=== PATIENT | female | born 1975 | race Caucasian/White ===

== ENCOUNTER 2021-01-25 12:54 | Emergency (ER) | payer MEDICARE, MEDICAID, SELFPAY ==
--- NOTE | ~2021-01-25 | XR_ITS ---
EXAMINATION: XR CHEST CLINICAL INFORMATION: First-time seizure. Age 45. COMPARISON: None TECHNIQUE: Portable upright AP view of the chest was obtained. FINDINGS: There are low lung volumes with inspiration to the posterior 8th ribs. The lungs are clear. There is no airspace consolidation, airspace opacity, or effusion. The heart is normal in size and the hilar and mediastinal contours are unremarkable. Bony structures show prominent dextrocurvature thoracic spine with multilevel degenerative changes. There is hardware/rodding in the lower thoracic and upper lumbar spine extending beyond field of view. XR/XR chest 1V IMPRESSION: Unremarkable examination.
--- NOTE | ~2021-01-25 | CT_ITS ---
EXAMINATION: CT HEAD WITHOUT CONTRAST CLINICAL INFORMATION: Procedure COMPARISON: None TECHNIQUE: Contiguous axial imaging was performed from the skull base to vertex without intravenous administration of contrast. This CT examination was performed using dose optimization techniques as appropriate, variously including the following: *Automated exposure control *Adjustment of mA and/or kV according to patient size (this includes techniques or standardized protocols for targeted exams where dose is matched to indication/reason for exam; i.e. extremities or head) *Use of iterative reconstruction technique DLP: 1693 mGy-cm FINDINGS: Exam is limited due to motion artifact. There is no evidence of an extra-axial collection. There is no evidence of intra-axial or extra-axial hemorrhage. The ventricles and extra-axial CSF spaces are appropriate. Oconnell-white matter differentiation is normal. No mass, mass effect or infarct is seen. Review at bone windows is normal. No skull fracture is seen. Paranasal sinuses, mastoid air cells and middle ears are clear. There is deformity and calcification of the eyeballs. CT/CT head/brain wo con IMPRESSION: Limited exam due to motion artifact. No acute findings.
[2021-01-25 13:13] VITALS: BP 143/83; PULSE 94; RESP 28; TEMP 36.8; O2SAT 98; BMI 28.3
--- NOTE | 2021-01-25 13:36 | ECG_ITS ---
Test Reason : SEIZURE Blood Pressure : / mmHG Vent. Rate : 082 BPM Atrial Rate : 082 BPM P-R Int : 168 ms QRS Dur : 088 ms QT Int : 390 ms P-R-T Axes : 009 142 027 degrees QTc Int : 455 ms Poor data quality Normal sinus rhythm Right axis deviation Incomplete right bundle branch block Abnormal ECG No previous ECGs available Referred By: Patricia Barillas Electronically Signed By:ADALI KELLY MD
--- NOTE | 2021-01-25 13:40 | ED.SEIZURE ---
HPI - Seizure General Chief Complaint: Seizure Stated Complaint: SIEZURE Time Seen by Provider: 01/25/21 13:26 Source: patient and EMS Mode of arrival: EMS History of Present Illness HPI Narrative: 45-year-old female a with a PMHx HTN, legally blind, legally deaf, nonverbal, developmental delay, BIBA for first-time witnessed seizure at Day program [employer]. Per mother patient had described as tonic clonic seizure while sitting in wheelchair, denies fall/head trauma. Parents denies fever, recent illness/chills, cough, SOB, vomiting/diarrhea History limited as patient is nonverbal MD complaint: seizure Related Data Home Medications Medication Instructions Recorded Confirmed cholecalciferol (vitamin D3) 50 mcg PO DAILY 01/25/21 01/25/21 cyclosporine [Restasis] 1 drp OPHTHALMIC (EYE) BID 01/25/21 01/25/21 docusate sodium 1 cap PO BID 01/25/21 01/25/21 fluoxetine 1 cap PO DAILY 01/25/21 01/25/21 loratadine 1 tab PO DAILY 01/25/21 01/25/21 norgestimate-ethinyl estradiol 1 tab PO DAILY 01/25/21 01/25/21 [Estarylla] sennosides [senna] 17.2 mg PO BEDTIME 01/25/21 01/25/21 zolpidem 1 tab PO BEDTIME 01/25/21 01/25/21 Previous Rx's Medication Instructions Recorded cefuroxime axetil 250 mg PO BID 7 Days #14 tab 01/25/21 levetiracetam 500 mg PO BID 14 Days #28 tab 01/25/21 Allergies Allergy/AdvReac Type Severity Reaction Status Date / Time Sulfa (Sulfonamide Allergy Unknown Verified 08/29/12 00:00 Antibiotics) No Known Allergies Allergy Unverified 03/24/20 14:53 [No Known Allergies*] Review of Systems Review of Systems: Constitutional: No Fever, No Chills Eyes: No Eye Pain, No Swelling, + Redness Cardiovascular: No Chest Pain, No SOB Respiratory: No Cough, No Dyspnea Gastrointestinal: No Nausea, No Vomiting, No Diarrhea, No Constipation, No Abdominal pain Genitourinary: No Dysuria, No Urinary Frequency, No Hematuria Musculoskeletal: No Joint Swelling Skin: No Skin Lesions, No rash Neuro: No Weakness Yes all other systems are reviewed and are negative [facility] Past Medical History Attestation statement: The following information was validated with the patient. Medical History (Updated 01/25/21 @ 19:33 by ADRIÁN August) Hypertension Social History Social History Advance Directives: No Advance Directives Information Provided: Yes Physical Exam Vital Signs: Vital Signs: Last Vital Signs Temp 97.2 F 01/25/21 15:32 Pulse 71 01/25/21 15:32 Resp 16 01/25/21 15:32 BP 125/71 01/25/21 15:32 Pulse Ox 99 01/25/21 15:32 Body Mass Index 28.3 Const: Other: Upset/tearful General: cooperative, alert and awake HENMT: Head: Yes normal to inspection and Yes atraumatic Ears: hearing grossly normal bilaterally General nose exam: Normal external nose present Face and sinus: Yes normal facial exam Eyes: Other: Bilateral conjunctival irritation General: appearance normal, both eyes and all related structures EOM: EOMs intact bilaterally Neck: Neck: Yes normal visual inspection and Yes no meningeal signs Resp: Effort & Inspection: normal respiratory effort Auscultation: clear to auscultation bilaterally and no wheezes Cardio: Rate: regular rate Heart sounds: S1 normal heart sound present and S2 normal heart sound present GI: Inspection: Yes normal to inspection Palpation (GI): Soft to palpation, nontender, no guarding and not rigid Skin: Rashes: no rashes Wounds: no wounds Neuro: General: tone normal, moves all extremities and no meningeal signs Gait exam (Neuro): Normal gait present Extrem: General: Yes normal to inspection and Yes no pedal edema Course Course Course Narrative: -1415--neurology, Dr. Clark evaluated patient in the emergency department recommended labs to rule out infection/metabolic abnormalities, initiating Keflex 500 b.i.d. and DC home with outpatient follow-up XR chest 1V IMPRESSION: Unremarkable examination. CT head/brain wo con IMPRESSION: Limited exam due to motion artifact. No acute findings. -leukocytosis of 16.6 likely reactive from seizure. Lactic acidosis of 3.0 which also coincides with seizure. Low concern for severe sepsis -High sensitivity troponin 30.3 > will obtain 3 hour repeat -1600--UA is infected will give dose of IV Rocephin. Still low suspicion for severe sepsis -lactic cleared -repeat troponin with greater than 50% rise. Case discussed with Cardiology, likely from muscle breakdown however CPK WNL. Low suspicion for ACS, agreed plan to repeat additional 3 hour troponin -1900-- ED care transferred to ADRIÁN Cesar pending repeat troponin and CBC at 8:20 p.m. MDM - Seizure MDM Narrative Medical decision making narrative: 45-year-old female a with a PMHx HTN, legally blind, legally deaf, nonverbal, developmental delay, BIBA for first-time witnessed seizure at Day program [employer]. On exam tachypneic, upset/tearful, NAD/nontoxic. Concern for intracranial pathology vs metabolic or infectious etiology causing first-time seizure. Vital sign abnormalities likely from being upset. Low concern for severe sepsis Plan: EKG, labs, UA, CXR, head CT, anticipated admission/Neuro consult Medical Records Attestation: I reviewed the patient's medical records. Lab Data Attestation: I reviewed the patient's lab results. Result diagrams: 01/25/21 14:54 01/25/21 14:54 Labs: Lab Results 01/25/21 01/25/21 01/25/21 Range/Units 14:53 14:53 14:54 WBC 16.6 H (4.8-10.8) X10*3/uL RBC 4.33 (4.20-5.50) X10*6/uL Hgb 13.1 (12.0-16.0) g/dl Hct 37.8 (37-47) % MCV 87.3 (80-98) fL MCH 30.3 (27.0-33.0) pg MCHC 34.7 (31.0-35.0) g/dl RDW 11.9 (11.0-16.0) % Plt Count 316 (160-400) X10*3/uL MPV 9.0 L (9.4-12.3) fL Immature Gran % (Auto) 0.6 H (0.0-0.4) % Neut % (Auto) 87.7 H (45-73) % Lymph % (Auto) 7.4 L (20-40) % [place] % (Auto) 3.9 (2-11) % Eos % (Auto) 0.1 (0-4) % Baso % (Auto) 0.3 (0-2) % Lymph # (Auto) 1.2 (1.2-4.9) X10*3/uL [place] # (Auto) 0.7 (0.1-1.2) X10*3/uL Eos # (Auto) 0.0 (0.0-0.4) X10*3/uL Baso # (Auto) 0.1 (0.0-0.2) X10*3/uL Abs Immat Gran (auto) 0.10 H (0.00-0.03) X10*3/uL Absolute Neuts (auto) 14.6 H (2.0-8.3) X10*3/uL Absolute Nucleated RBC 0.000 (0.0-0.012) X10*3/uL Nucleated RBC % (auto) 0.0 (0.0-0.2) /100WBC Sodium (135-145) mmol/L Potassium (3.3-5.1) mmol/L Chloride (96-108) mmol/L Carbon Dioxide (22-29) mmol/L Anion Gap (12-20) BUN (9-16) mg/dL Creatinine (0.5-1.4) mg/dL Estim Creat Clear Calc Estimated GFR Random Glucose (60-115) mg/dL Lactic Acid 3.0 H* (0.5-2.0) mmol/L Lactic Acid Fup @ 2Hr (0.5-2.0) mmol/L Calcium (8.4-10.2) mg/dL Magnesium (1.6-2.6) mg/dL Total Bilirubin (0.0-1.0) mg/dL Direct Bilirubin (0.0-0.5) mg/dL AST (5-31) U/L ALT (0-31) U/L Alkaline Phosphatase (39-117) U/L Total Creatine Kinase (26-140) U/L Troponin I High Sens 30.3 H* (<3.5-17.0) ng/L Total Protein (6.5-8.0) g/dL Albumin (3.5-5.0) g/dL Lipase (8-78) U/L Urine Color Urine Appearance Urine pH (5.0-8.0) Ur Specific [place] (1.005-1.025) Urine Protein (NEG-TRACE) MG/DL Urine Glucose (UA) (NEG) MG/DL Urine Ketones (NEG) MG/DL Urine Blood (NEG) Urine Nitrite (NEG) Ur Leukocyte Esterase (NEG) Urine RBC (0) /HPF Urine WBC (0-4) /HPF Ur Squamous Epith Cells /LPF Urine Bacteria /LPF Urine Opiates Screen (Not Detect) Ur Barbiturates Screen (Not Detect) Ur Phencyclidine Scrn (Not Detect) Ur Amphetamines Screen (Not Detect) U Benzodiazepines Scrn (Not Detect) Urine Cocaine Screen (Not Detect) U Marijuana (THC) Screen (Not Detect) COVID-19 ([facility]) (Negative) COVID-19 Clin Com 01/25/21 01/25/21 01/25/21 Range/Units 14:54 14:54 14:54 WBC (4.8-10.8) X10*3/uL RBC (4.20-5.50) X10*6/uL Hgb (12.0-16.0) g/dl Hct (37-47) % MCV (80-98) fL MCH (27.0-33.0) pg MCHC (31.0-35.0) g/dl RDW (11.0-16.0) % Plt Count (160-400) X10*3/uL MPV (9.4-12.3) fL Immature Gran % (Auto) (0.0-0.4) % Neut % (Auto) (45-73) % Lymph % (Auto) (20-40) % [place] % (Auto) (2-11) % Eos % (Auto) (0-4) % Baso % (Auto) (0-2) % Lymph # (Auto) (1.2-4.9) X10*3/uL [place] # (Auto) (0.1-1.2) X10*3/uL Eos # (Auto) (0.0-0.4) X10*3/uL Baso # (Auto) (0.0-0.2) X10*3/uL Abs Immat Gran (auto) (0.00-0.03) X10*3/uL Absolute Neuts (auto) (2.0-8.3) X10*3/uL Absolute Nucleated RBC (0.0-0.012) X10*3/uL Nucleated RBC % (auto) (0.0-0.2) /100WBC Sodium 138 (135-145) mmol/L Potassium 4.7 (3.3-5.1) mmol/L Chloride 107 (96-108) mmol/L Carbon Dioxide 22 (22-29) mmol/L Anion Gap 14 (12-20) BUN 10 (9-16) mg/dL Creatinine 0.75 (0.5-1.4) mg/dL Estim Creat Clear Calc 92.8 Estimated GFR > 60 Random Glucose 118 H (60-115) mg/dL Lactic Acid (0.5-2.0) mmol/L Lactic Acid Fup @ 2Hr (0.5-2.0) mmol/L Calcium 9.2 (8.4-10.2) mg/dL Magnesium 1.9 (1.6-2.6) mg/dL Total Bilirubin 0.3 (0.0-1.0) mg/dL Direct Bilirubin < 0.2 (0.0-0.5) mg/dL AST 14 (5-31) U/L ALT 10 (0-31) U/L Alkaline Phosphatase 75 (39-117) U/L Total Creatine Kinase 64 (26-140) U/L Troponin I High Sens (<3.5-17.0) ng/L Total Protein 7.1 (6.5-8.0) g/dL Albumin 3.9 (3.5-5.0) g/dL Lipase 22 (8-78) U/L Urine Color Urine Appearance Urine pH (5.0-8.0) Ur Specific [place] (1.005-1.025) Urine Protein (NEG-TRACE) MG/DL Urine Glucose (UA) (NEG) MG/DL Urine Ketones (NEG) MG/DL Urine Blood (NEG) Urine Nitrite (NEG) Ur Leukocyte Esterase (NEG) Urine RBC (0) /HPF Urine WBC (0-4) /HPF Ur Squamous Epith Cells /LPF Urine Bacteria /LPF Urine Opiates Screen (Not Detect) Ur Barbiturates Screen (Not Detect) Ur Phencyclidine Scrn (Not Detect) Ur Amphetamines Screen (Not Detect) U Benzodiazepines Scrn (Not Detect) Urine Cocaine Screen (Not Detect) U Marijuana (THC) Screen (Not Detect) COVID-19 ([facility]) Negative (Negative) COVID-19 Clin Com See Note 01/25/21 01/25/21 01/25/21 Range/Units 15:35 15:35 17:19 WBC (4.8-10.8) X10*3/uL RBC (4.20-5.50) X10*6/uL Hgb (12.0-16.0) g/dl Hct (37-47) % MCV (80-98) fL MCH (27.0-33.0) pg MCHC (31.0-35.0) g/dl RDW (11.0-16.0) % Plt Count (160-400) X10*3/uL MPV (9.4-12.3) fL Immature Gran % (Auto) (0.0-0.4) % Neut % (Auto) (45-73) % Lymph % (Auto) (20-40) % [place] % (Auto) (2-11) % Eos % (Auto) (0-4) % Baso % (Auto) (0-2) % Lymph # (Auto) (1.2-4.9) X10*3/uL [place] # (Auto) (0.1-1.2) X10*3/uL Eos # (Auto) (0.0-0.4) X10*3/uL Baso # (Auto) (0.0-0.2) X10*3/uL Abs Immat Gran (auto) (0.00-0.03) X10*3/uL Absolute Neuts (auto) (2.0-8.3) X10*3/uL Absolute Nucleated RBC (0.0-0.012) X10*3/uL Nucleated RBC % (auto) (0.0-0.2) /100WBC Sodium (135-145) mmol/L Potassium (3.3-5.1) mmol/L Chloride (96-108) mmol/L Carbon Dioxide (22-29) mmol/L Anion Gap (12-20) BUN (9-16) mg/dL Creatinine (0.5-1.4) mg/dL Estim Creat Clear Calc Estimated GFR Random Glucose (60-115) mg/dL Lactic Acid (0.5-2.0) mmol/L Lactic Acid Fup @ 2Hr (0.5-2.0) mmol/L Calcium (8.4-10.2) mg/dL Magnesium (1.6-2.6) mg/dL Total Bilirubin (0.0-1.0) mg/dL Direct Bilirubin (0.0-0.5) mg/dL AST (5-31) U/L ALT (0-31) U/L Alkaline Phosphatase (39-117) U/L Total Creatine Kinase (26-140) U/L Troponin I High Sens 57.4 H* D (<3.5-17.0) ng/L Total Protein (6.5-8.0) g/dL Albumin (3.5-5.0) g/dL Lipase (8-78) U/L Urine Color YELLOW Urine Appearance HAZY Urine pH 7.0 (5.0-8.0) Ur Specific [place] 1.020 (1.005-1.025) Urine Protein NEG (NEG-TRACE) MG/DL Urine Glucose (UA) NEG (NEG) MG/DL Urine Ketones 15 (NEG) MG/DL Urine Blood 2+ H (NEG) Urine Nitrite NEG (NEG) Ur Leukocyte Esterase 2+ H (NEG) Urine RBC 10-14 H (0) /HPF Urine WBC 10-14 H (0-4) /HPF Ur Squamous Epith Cells 1+ /LPF Urine Bacteria 1+ /LPF Urine Opiates Screen Not Detected (Not Detect) Ur Barbiturates Screen Not Detected (Not Detect) Ur Phencyclidine Scrn Not Detected (Not Detect) Ur Amphetamines Screen Not Detected (Not Detect) U Benzodiazepines Scrn Not Detected (Not Detect) Urine Cocaine Screen Not Detected (Not Detect) U Marijuana (THC) Screen Not Detected (Not Detect) COVID-19 ([facility]) (Negative) COVID-19 Clin Com 01/25/21 Range/Units 17:19 WBC (4.8-10.8) X10*3/uL RBC (4.20-5.50) X10*6/uL Hgb (12.0-16.0) g/dl Hct (37-47) % MCV (80-98) fL MCH (27.0-33.0) pg MCHC (31.0-35.0) g/dl RDW (11.0-16.0) % Plt Count (160-400) X10*3/uL MPV (9.4-12.3) fL Immature Gran % (Auto) (0.0-0.4) % Neut % (Auto) (45-73) % Lymph % (Auto) (20-40) % [place] % (Auto) (2-11) % Eos % (Auto) (0-4) % Baso % (Auto) (0-2) % Lymph # (Auto) (1.2-4.9) X10*3/uL [place] # (Auto) (0.1-1.2) X10*3/uL Eos # (Auto) (0.0-0.4) X10*3/uL Baso # (Auto) (0.0-0.2) X10*3/uL Abs Immat Gran (auto) (0.00-0.03) X10*3/uL Absolute Neuts (auto) (2.0-8.3) X10*3/uL Absolute Nucleated RBC (0.0-0.012) X10*3/uL Nucleated RBC % (auto) (0.0-0.2) /100WBC Sodium (135-145) mmol/L Potassium (3.3-5.1) mmol/L Chloride (96-108) mmol/L Carbon Dioxide (22-29) mmol/L Anion Gap (12-20) BUN (9-16) mg/dL Creatinine (0.5-1.4) mg/dL Estim Creat Clear Calc Estimated GFR Random Glucose (60-115) mg/dL Lactic Acid (0.5-2.0) mmol/L Lactic Acid Fup @ 2Hr 2.0 (0.5-2.0) mmol/L Calcium (8.4-10.2) mg/dL Magnesium (1.6-2.6) mg/dL Total Bilirubin (0.0-1.0) mg/dL Direct Bilirubin (0.0-0.5) mg/dL AST (5-31) U/L ALT (0-31) U/L Alkaline Phosphatase (39-117) U/L Total Creatine Kinase (26-140) U/L Troponin I High Sens (<3.5-17.0) ng/L Total Protein (6.5-8.0) g/dL Albumin (3.5-5.0) g/dL Lipase (8-78) U/L Urine Color Urine Appearance Urine pH (5.0-8.0) Ur Specific [place] (1.005-1.025) Urine Protein (NEG-TRACE) MG/DL Urine Glucose (UA) (NEG) MG/DL Urine Ketones (NEG) MG/DL Urine Blood (NEG) Urine Nitrite (NEG) Ur Leukocyte Esterase (NEG) Urine RBC (0) /HPF Urine WBC (0-4) /HPF Ur Squamous Epith Cells /LPF Urine Bacteria /LPF Urine Opiates Screen (Not Detect) Ur Barbiturates Screen (Not Detect) Ur Phencyclidine Scrn (Not Detect) Ur Amphetamines Screen (Not Detect) U Benzodiazepines Scrn (Not Detect) Urine Cocaine Screen (Not Detect) U Marijuana (THC) Screen (Not Detect) COVID-19 ([facility]) (Negative) COVID-19 Clin Com Discharge Plan Discharge Clinical Impression: First time seizure, UTI (urinary tract infection) Instructions: Epilepsy in Older Adults (ED), Urinary Tract Infection in Women (ED) Additional Instructions: You had a first-time seizure, Keppra is a an anti seizure medication, take as prescribed Ceftin is antibiotic, please take as prescribed It is important for you to follow-up with both Neurology and Cardiology Your heart enzymes were elevated today in the emergency department, this needs to be followed up If she has recurrent seizures, fever, nausea/vomiting, abdominal pain please return to the ED Prescriptions: New levetiracetam 500 mg tablet 500 mg PO BID 14 Days Qty: 28 RF: 0 cefuroxime axetil 250 mg tablet 250 mg PO BID 7 Days Qty: 14 RF: 0 No Action fluoxetine 40 mg capsule 1 cap PO DAILY RF: 0 norgestimate-ethinyl estradiol [Estarylla] 0.25-35 mg-mcg tablet 1 tab PO DAILY RF: 0 docusate sodium 100 mg capsule 1 cap PO BID RF: 0 zolpidem 10 mg tablet 1 tab PO BEDTIME RF: 0 loratadine 10 mg tablet 1 tab PO DAILY RF: 0 Restasis 0.05 % dropperette 1 drp ophthalmic (eye) BID RF: 0 sennosides [senna] 8.6 mg Tablet 17.2 mg PO BEDTIME RF: 0 cholecalciferol (vitamin D3) 50 mcg (2,000 unit) Tablet 50 mcg PO DAILY RF: 0 Referrals: Redd Clark MD [Physician] - 2 days Umair Marquis MD [Physician] - 2 days
--- NOTE | 2021-01-25 14:25 | PHA.MEDREC ---
Pharmacy Consult ? Medication Reconciliation Pharmacy has completed the medication reconciliation.
--- NOTE | 2021-01-25 14:36 | P.CNNE_ITS ---
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 She communicated with her family with touch language. I have been seeing her for number of years and have prescribed fluoxetine for anxiety and zolpidem for insomnia. She never had any seizure. Today at day program she was noted to have a generalized seizure type of episode when her whole body started shaking especially the upper body, her face turned blue, and she was unresponsive. She was brought to [facility]. [facility] Past Medical History Medical History (Updated 01/25/21 @ 14:40 by Redd Clark MD) Hypertension Social History Social History Advance Directives: No Advance Directives Information Provided: Yes Meds Allergies Allergy/AdvReac Type Severity Reaction Status Date / Time Sulfa (Sulfonamide Allergy Unknown Verified 08/29/12 00:00 Antibiotics) No Known Allergies Allergy Unverified 03/24/20 14:53 [No Known Allergies*] Active Medications: Current Medications Generic Name Dose Route Start Last Admin Trade Name Freq PRN Reason Stop Dose Admin Sodium Chloride 1,000 mls @ 999 mls/hr 01/25/21 13:45 Ns IVCONT 01/25/21 14:45 .[id number] [facility] Pharmacy Consult 1 each 01/25/21 13:35 Consult Rx Perform Med Rec MISCELLANE ONCE PRN Consult order Home Medications Medication Instructions Recorded Confirmed Last Taken Type cholecalciferol (vitamin D3) 50 mcg PO DAILY 01/25/21 01/25/21 01/25/21 History cyclosporine [Restasis] 1 drp OPHTHALMIC (EYE) BID 01/25/21 01/25/21 01/25/21 History docusate sodium 1 cap PO BID 01/25/21 01/25/21 01/25/21 History fluoxetine 1 cap PO DAILY 01/25/21 01/25/21 01/25/21 History loratadine 1 tab PO DAILY 01/25/21 01/25/21 01/25/21 History norgestimate-ethinyl estradiol 1 tab PO DAILY 01/25/21 01/25/21 01/25/21 History [Estarylla] sennosides [senna] 17.2 mg PO BEDTIME 01/25/21 01/25/21 01/24/21 History zolpidem 1 tab PO BEDTIME 01/25/21 01/25/21 01/24/21 History Physical Exam Vital Signs: Vital Signs: Last Vital Signs Temp 98.3 F 01/25/21 13:13 Pulse 94 01/25/21 13:13 Resp 28 H 01/25/21 13:13 BP 143/83 H 01/25/21 13:13 Pulse Ox 98 01/25/21 13:13 Body Mass Index 28.3 She was alert and awake her usual self anxious with her mom nearby. I did not find any significant difference from her baseline. Examination with her has always been difficult as she could not communicate except through her mom. There was no obvious focal weakness. Results Labs Labs: Her noncontrast head CT did not reveal any significant abnormality. Assessment and Plan (1) Chronic static encephalopathy: Status: Acute (2) Deafness: Status: Acute (3) Blindness: Status: Acute (4) First time seizure: Status: Acute 45 years old woman known to me for underlying chronic static encephalopathy not able to see, hear, or communicate verbally. She communicated by touch language. She had a generalized convulsion today. At this time my recommendations are to perform routine CBC metabolic profile calcium and magnesium levels. If no sign of electrolyte abnormality or infection or any explanation for seizure is found, I would recommend starting her on levetiracetam 500 mg twice a day. She could follow as in office work in few weeks time. Plan was discussed with her mom. Procedures Date of Service Date of Service: 01/25/21
[2021-01-25] MEDS: levETIRAcetam in NaCl (iso-os) 1,000 MG/100 ML PIGGYBACK 400 MG IV (14:37)
[2021-01-25] MEDS: 0.9 % Sodium Chloride 1,000 ML 999 ML IVCONT ×2 (14:40→16:28)
[2021-01-25 15:00] LABS: MANUAL DIFF FLAG NO
[2021-01-25 15:06] LABS: Basophils Absolute Auto 0.1 X10*3/uL (0.0-0.2); Basophils Percent Auto 0.3 % (0-2); Eosinophils Percent Auto 0.1 % (0-4); Hematocrit 37.8 % (37-47); Hemoglobin 13.1 g/dl (12.0-16.0); Imm Gran Pct Auto 0.6 % (0.0-0.4); Lymphocytes Absolute Auto 1.2 X10*3/uL (1.2-4.9); Lymphocytes Percent Auto 7.4 % (20-40); Mean Corpuscular HGB Conc 34.7 g/dl (31.0-35.0); Mean Corpuscular Hemoglobin 30.3 pg (27.0-33.0); Mean Corpuscular Volume 87.3 fL (80-98); Monocytes Absolute Auto 0.7 X10*3/uL (0.1-1.2); Monocytes Percent Auto 3.9 % (2-11); Neutrophils Absolute Auto 14.6 X10*3/uL (2.0-8.3); Neutrophils Percent Auto 87.7 % (45-73); Platelet Count 316 X10*3/uL (160-400); Red Blood Count 4.33 X10*6/uL (4.20-5.50); Red Cell Distribution Width 11.9 % (11.0-16.0); White Blood Count 16.6 X10*3/uL (4.8-10.8)
[2021-01-25 15:18] LABS: COVID-19 Test Negative (Negative); IDNOW Serial# 9DD0AD1C
[2021-01-25 15:27] LABS: Lipase 22 U/L (8-78); Magnesium 1.9 mg/dL (1.6-2.6)
[2021-01-25 15:28] LABS: Alanine Aminotransferase 10 U/L (0-31); Albumin Level 3.9 g/dL (3.5-5.0); Alkaline Phosphatase 75 U/L (39-117); Anion Gap 14 (12-20); Aspartate Amino Transferase 14 U/L (5-31); Bilirubin Direct < 0.2 mg/dL (0.0-0.5); Bilirubin Total 0.3 mg/dL (0.0-1.0); Blood Urea Nitrogen 10 mg/dL (9-16); Calcium 9.2 mg/dL (8.4-10.2); Carbon Dioxide 22 mmol/L (22-29); Chloride 107 mmol/L (96-108); Creatinine Clr Calc Pharmacy 92.8; Estimated Glomerular Filt Rate > 60; Glucose Random 118 mg/dL (60-115); Potassium 4.7 mmol/L (3.3-5.1); Sodium 138 mmol/L (135-145); Total Protein 7.1 g/dL (6.5-8.0)
[2021-01-25 15:32] VITALS: BP 125/71; PULSE 71; RESP 16; TEMP 36.2; O2SAT 99
[2021-01-25 15:40] LABS: Troponin-I High Sensitivity 30.3 ng/L (<3.5-17.0)
[2021-01-25 15:43] LABS: Glucose Urine UA NEG (NEG); Leukocyte Esterase Urine 2+ (NEG); Nitrite Urine NEG (NEG); UACC Culture Trigger YES; Urine Blood 2+ (NEG); Urine Ketones 15 MG/DL (NEG); Urine Protein NEG (NEG-TRACE)
[2021-01-25 15:47] LABS: Appearance Urine HAZY; Color Urine YELLOW
[2021-01-25 15:58] LABS: Bacteria Urine 1+ /LPF; Squamous Epithelial Cell Urine 1+ /LPF
[2021-01-25 16:09] LABS: Amphetamine Screen Urine Not Detected (Not Detect); Barbiturates, Urine Not Detected (Not Detect); Benzodiazepines Screen Urine Not Detected (Not Detect); Cannabinoid Screen Urine Not Detected (Not Detect); Cocaine Screen Urine Not Detected (Not Detect); Opiate Screen Urine Not Detected (Not Detect); Phencyclidine Screen Urine Not Detected (Not Detect)
[2021-01-25] MEDS: cefTRIAXone sodium 1 GM in 0.9 % Sodium Chloride 50 ML IV (16:28)
[2021-01-25 16:59] LABS: Reflex Lactate? Lactic Acid Added
[2021-01-25 18:27] LABS: Troponin-I High Sensitivity 57.4 ng/L (<3.5-17.0)
[2021-01-25 19:23] VITALS: BP 150/82; PULSE 68; RESP 19; TEMP 36.8; O2SAT 99
[2021-01-25] MEDS: diphenhydrAMINE HCL 50 MG/ML VIAL 25 MG IVPUSH (19:32)
[2021-01-25 20:28] LABS: MANUAL DIFF FLAG NO
[2021-01-25 20:30] LABS: Basophils Percent Auto 0.2 % (0-2); Eosinophils Percent Auto 0.1 % (0-4); Hematocrit 36.9 % (37-47); Hemoglobin 13.1 g/dl (12.0-16.0); Imm Gran Abs Auto 0.05 X10*3/uL (0.00-0.03); Imm Gran Pct Auto 0.4 % (0.0-0.4); Lymphocytes Absolute Auto 1.7 X10*3/uL (1.2-4.9); Lymphocytes Percent Auto 15.6 % (20-40); Mean Corpuscular HGB Conc 35.5 g/dl (31.0-35.0); Mean Corpuscular Hemoglobin 30.2 pg (27.0-33.0); Monocytes Absolute Auto 0.6 X10*3/uL (0.1-1.2); Neutrophils Absolute Auto 8.8 X10*3/uL (2.0-8.3); Neutrophils Percent Auto 78.7 % (45-73); Platelet Count 290 X10*3/uL (160-400); Red Blood Count 4.34 X10*6/uL (4.20-5.50); Red Cell Distribution Width 11.8 % (11.0-16.0); White Blood Count 11.2 X10*3/uL (4.8-10.8)
[2021-01-25 21:20] LABS: Troponin-I High Sensitivity 58.2 ng/L (<3.5-17.0)
== END 2021-01-25 22:41 | disposition home or self-care (01) ==
PROVIDERS: Physician Assistant; Emergency Provider Emergency Medicine; PCP Family Medicine
DX: R56.9 Unspecified convulsions (principal); N39.0 Urinary tract infection, site not specified; G93.49 Other encephalopathy; I10 Essential (primary) hypertension; H91.3 Deaf nonspeaking, not elsewhere classified; H54.8 Legal blindness, as defined in USA; R62.50 Unspecified lack of expected normal physiological development in childhood; Z79.899 Other long term (current) drug therapy; Z20.822 Contact with and (suspected) exposure to COVID-19
CPT/HCPCS: 36415; 70450; 71045; 80048; 80076; 80307; 81001; 81003; 82550; 83605; 83690; 83735; 84484; 85025; 87086; 87635; 93005; 96361; 96365; 96375; 99284; J0696; J1200; J1953

== ENCOUNTER → 2021-02-28 13:24 | Outpatient (BNVA) | payer MEDICARE, MEDICAID, SELFPAY | PROVIDERS: PCP Family Medicine; Referring Provider Family Medicine; Visit Provider Nurse Practitioner Family | DX: R77.8 Other specified abnormalities of plasma proteins (principal); I45.10 Unspecified right bundle-branch block; R56.9 Unspecified convulsions; H54.7 Unspecified visual loss; H91.90 Unspecified hearing loss, unspecified ear; G93.49 Other encephalopathy; I10 Essential (primary) hypertension | CPT/HCPCS: 99202; 99212 ==

== ENCOUNTER → 2021-04-04 07:18 | Outpatient (REF) | payer MEDICARE, MEDICAID, SELFPAY ==
--- NOTE | 2021-04-04 07:20 | CA_ITS ---
Transthoracic Echocardiogram Patient (Last, First, Middle): Phylicia Johnson, Gender: Female Date of : 1975 Age: 45 Procedure Date: 04/04/2021 Procedure Type: Transthoracic Echocardiogram Location: OP Height: 162.56 cm Weight: 72.58 kg BSA: 1.78 m2 Heart Rate: bpm BP: 128 / 83 mmHg Accounts Payable Supervisor: ENEDINA Referring MD: Kristy Pryor WOOL GRADERShahida Symptoms: R77.8 - Other specified abnormalities of plasma proteins Study Quality: Fair ECG Rhythm: Sinus Conclusions: - The left ventricular systolic function is normal. The visually estimated ejection fraction is between 60-65%. - There is mild septal asymmetric hypertrophy. - No obvious valvular pathology seen on this study. Findings Left Ventricle Normal left ventricular cavity size. The left ventricular systolic function is normal. The visually estimated ejection fraction is between 60-65%. There is no evidence of regional wall motion abnormalities. E/E prime ratio is between 8 and 15 consistent with indeterminate filling pressures. Evidence suggests grade I (mild) diastolic dysfunction. There is mild septal asymmetric hypertrophy. Right Ventricle Normal right ventricular cavity size and systolic function. Atria Both atria are normal in size. Aortic Valve The aortic valve was not well visualized. There is a normal trileaflet aortic valve. There is no aortic valve stenosis. There is no aortic valve regurgitation. Mitral Valve The mitral valve appears normal. There is trace mitral valve regurgitation. There is no mitral valve stenosis. Pulmonic Valve The pulmonic valve was not well visualized. Tricuspid Valve The tricuspid valve was not well visualized. There is trace tricuspid valve regurgitation. Tricuspid regurgitation envelope is inadequate for calculation of right ventricular systolic pressure. Great Vessels The asc aorta is normal in size. Venous The inferior vena cava is normal in size and collapses greater than 50% with inspiration. Pericardium/Pleural Widened pericardial space, unable to distinguish between adipose tissue and effusion. (small) Prior Study Comparison No prior study available for comparison. Recommendations, Care & Conclusions No obvious valvular pathology seen on this study. Measurements 2D Linear Measurements IVSd: 1.13 0.6-0.9/0.6-1.0 cm LVIDd: 3.71 3.9-5.3/4.2-5.9 cm LVIDd Index: 2.08 2.4-3.2/2.2-3.1 cm/m2 LVIDs: 2.50 2.0-3.6 cm LVPWd: 0.95 0.7-1.1 cm LA Diam: 2.40 2.7-3.8/3.0-4.0 cm LAIDs Index: 1.35 1.5-2.3 cm/m2 LV Mass: 148.34 67-162/88-224 g LV Mass Index: 83.34 43-95/49-115 g/m2 LVOT Diam: 2.00 3.0+(-)1.3 cm Mitral Valve MV Pk E: 1.00 MV PK A: 0.46 MV Decel Time: 106.00 E/A: 2.20 E'Lateral: 6.42 E'Medial: 8.59 E/E' Med: 11.60 E/E' Lat: 15.50 PHT: 31.00 MVA PHT: 7.10 Decel Karnes: 9.39 Aortic Valve AoV Pk Daniel: 0.99 AoV Pk Grad: 4.00 LVOT LVOT Pk Daniel: 0.91 LVOT Mn Daniel: 0.57 LVOT VTI: 0.21 LVOT Pk Grad: 3.00 LVOT Mn Grad: 2.00 LVOT Diam: 2.00 LVOT Area: 3.14 Diastolic Function MV Pk E: 1.00 MV Pk A: 0.46 E/A: 2.20 E'Medial: 8.59 E/E' Med: 11.60 E' Laterial: 6.42 E/E' Lat: 15.50 Tricuspid Valve RA Press: 3.00 Great Vessels Aorta Ao Asc: 3.30 2.1-3.4 cm Updated in Other Vendor System with Status of Final Alex Hilton MD electronically signed on 04/04/2021 3:13:07 PM with status of Final
== END ==
LOC: HO.CARD 07:18
PROVIDERS: PCP Family Medicine; Visit Provider Nurse Practitioner Family
DX: R77.8 Other specified abnormalities of plasma proteins (principal)
CPT/HCPCS: 93306

== ENCOUNTER 2024-12-09 00:48 | Emergency (ER) | payer MEDICARE, MEDICAID, SELFPAY ==
[2024-12-09 00:55] VITALS: BP 144/87; BP 152/91; PULSE 100; PULSE 96; RESP 24; TEMP 37.6; O2SAT 100; O2SAT 99; BMI 27.2
--- NOTE | 2024-12-09 01:24 | ED.GENADULT ---
HPI - General Adult General Chief complaint: General Medical Stated complaint: ANXIETY Time Seen by Provider: 12/09/24 01:15 Source: family and EMS Mode of arrival: EMS Limitations: other History of Present Illness ED Provider: Dr. Lexi Vivas HPI narrative: Patient comes to the emergency room via ambulance from a care home. Patient is legally blind and deaf. Patient's parents were called by the care home and they are here at patient's bedside. The parents explained that the patient recently moved to a new care home and they do not know her very well. Seems that earlier today patient was hyperventilating. The parents state that she has done this before, they are not sure if this is because of an allergy or because of anxiety. However, they state that when Benadryl is given to her, the patient comes down and stops hyperventilating. Patient does not have any ordered to be given Benadryl at the care home, and therefore they were unable to medicate her. Related Data Home Medications ?Medication ?Instructions ?Recorded ?Confirmed cholecalciferol (vitamin D3) 50 50 mcg PO DAILY 01/25/21 02/28/21 mcg (2,000 unit) tablet cyclosporine 0.05 % eye drops in a 1 drp ophthalmic (eye) BID 01/25/21 02/28/21 dropperette (Restasis) docusate sodium 100 mg capsule 1 cap PO BID 01/25/21 02/28/21 fluoxetine 40 mg capsule 1 cap PO DAILY 01/25/21 02/28/21 loratadine 10 mg tablet 1 tab PO DAILY 01/25/21 02/28/21 norgestimate 0.25 mg-ethinyl 1 tab PO DAILY 01/25/21 02/28/21 estradiol 0.035 mg tablet (Estarylla) sennosides 8.6 mg tablet (senna) 17.2 mg PO BEDTIME 01/25/21 02/28/21 zolpidem 10 mg tablet 1 tab PO BEDTIME 01/25/21 02/28/21 Previous Rx's ?Medication ?Instructions ?Recorded levetiracetam 500 mg tablet 500 mg PO BID 14 days #28 tabs 01/25/21 diphenhydramine HCl 25 mg capsule 25 mg PO TID PRN anxiety #30 caps 12/09/24 (Benadryl) Allergies Allergy/AdvReac Type Severity Reaction Status Date / Time Sulfa (Sulfonamide Allergy Unknown unknown Verified 12/09/24 01:01 Antibiotics) Review of Systems Review of Systems: Yes Other [facility] Past Medical History Medical History Retina disorder, bilateral Scoliosis Mute Hypertension Surgical History History of creation of ostomy H/O Spinal surgery Family History Family History Mother Hx of heart artery stent Sister Cardiovascular disease Brother Cardiovascular disease Father Cardiovascular disease Social History Social History Smoked in Last 30 Days: No Use of substances other than those prescribed or required for medical reasons: No Advance Directives: No Advance Directives Information Provided: Yes Do you have a plan to hurt others: No Plan Patient : No Physical Exam ED Vital Signs: Vital Signs - 24 hr 12/09/24 00:55 Temperature 99.7 F Pulse Rate 100 Respiratory Rate 24 H Blood Pressure 144/87 H Pulse Oximetry 100 Oxygen Delivery Method Room Air BMI result Body Mass Index 27.2 Const Other: Appearance: Alert. Seems anxious Eyes: Patient is blind ENT: Pharynx normal. Difficult to evaluate, patient not open her mouth wide. However, lips and tongue look normal, no angioedema. Neck: Normal inspection. Neck supple. No lymph nodes noted. No crepitus, good air movement on auscultation CVS: Normal heart rate and rhythm. Pulses normal. Normal S1 and S2 Respiratory: No respiratory distress. Breath sounds normal. No Wheezing. No rales Abdomen: Soft and nontender. No rigidity. No distention. Skin: Skin warm and dry. Normal skin color. Normal skin turgor. Extremities: No lower extremity edema. No Lacerations. No Rash Neuro: Moves all extremities, patient is mute Psych: Seems anxious Course Course Course Narrative: According to the patient's parents who are at bedside, patient has had multiple episodes of anxiety, possible allergic reaction? . According to the patient's parents, they have never been able to determine what she is allergic to. However, patient responds well to Benadryl. Patient does not do well with blood draws or IV medication. I discussed with the patient's parents that we can try either p.o. medications or IM medications. Both patient's believes that it would be best to try IM for the patient. So far, I do not believe that the patient is having an allergic reaction, patient is breathing normal, oxygen saturation 99% on room air, no obvious signs of angioedema, no wheezing, no hives, overall patient seems anxious Sounds reasonable to try to give to the patient an IM dose of Benadryl, Solu-Medrol and diazepam The care home has not reported any signs of infection, fever. Seems that the patient was doing well until tonight. Medications Administered Discontinued Medications Generic Name Dose Route Start Last Admin Trade Name Freq PRN Reason Stop Dose Admin Diazepam 2.5 mg 12/09/24 01:12/09/24 01:39 Diazepam 10 Mg/2 Ml Cartridge IM 12/09/24 01:25 2.5 mg STAT STA Administration Diphenhydramine HCl 50 mg 12/09/24 01:24 12/09/24 01:41 Diphenhydramine Hcl 50 Mg/Ml Vial IM 12/09/24 01:25 50 mg ONCE ONE Administration Methylprednisolone Sodium Succinate 60 mg 12/09/24 01:24 12/09/24 01:42 Methylprednisolone Sod Succ 125 Mg Vial IM 12/09/24 01:25 60 mg ONCE ONE Administration Medical Decision Making Medical Decision Making [facility] Narrative: After the above mentioned medication, patient no longer anxious, breathing comfortably, sitting Calmly in chair. No respiratory distress Normal vitals Patient's parents state that she is back to baseline and they already to take her back to her care home Discharge Plan Discharge Clinical Impression: Anxiety Patient Disposition: Home, Self-Care Instructions: Anxiety (ED) Additional Instructions: Please follow-up with your primary care physician tomorrow. If you have any worsening or new symptoms, please return to the emergency room or call 911 Prescriptions: New diphenhydramine HCl [Benadryl] 25 mg capsule 25 mg PO TID PRN (Reason: anxiety) Qty: 30 0RF No Action fluoxetine 40 mg capsule 1 cap PO DAILY norgestimate-ethinyl estradiol [Estarylla] 0.25-35 mg-mcg tablet 1 tab PO DAILY docusate sodium 100 mg capsule 1 cap PO BID zolpidem 10 mg tablet 1 tab PO BEDTIME loratadine 10 mg tablet 1 tab PO DAILY Restasis 0.05 % dropperette 1 drp ophthalmic (eye) BID sennosides [senna] 8.6 mg Tablet 17.2 mg PO BEDTIME cholecalciferol (vitamin D3) 50 mcg (2,000 unit) Tablet 50 mcg PO DAILY levetiracetam 500 mg tablet 500 mg PO BID 14 Days Qty: 28 0RF Print Language: Citizen [place]
[2024-12-09] MEDS: diazePAM 10 MG/2 ML CARTRIDGE 2.5 MG IM (01:39)
[2024-12-09] MEDS: diphenhydrAMINE HCL 50 MG/ML VIAL IM (01:41)
[2024-12-09 04:06] VITALS: BP 107/71; PULSE 77; RESP 16; TEMP 36.6; O2SAT 97
== END 2024-12-09 04:07 | disposition home or self-care (01) ==
PROVIDERS: Emergency Provider Emergency Medicine; PCP Family Medicine
DX: F41.9 Anxiety disorder, unspecified (principal); R06.4 Hyperventilation; H91.90 Unspecified hearing loss, unspecified ear; H54.8 Legal blindness, as defined in USA
CPT/HCPCS: 96372; 99284; J1200; J2919; J3360

== ENCOUNTER 2025-03-24 09:36 | Outpatient (AMB) | payer MEDICARE, MEDICAID, SELFPAY ==
--- NOTE | 2025-03-24 10:02 | MHC.OFFVIS ---
Intake Visit Reasons: 6m Allergies Sulfa (Sulfonamide Antibiotics) Allergy (Unknown, Verified 12/09/24 01:01) unknown Medication List - Last Reconciled 03/24/25 by Swathi Clark MD cholecalciferol (vitamin D3) 50 mcg PO DAILY cyclosporine 0.05% (Restasis) 1 drp ophthalmic (eye) BID diphenhydramine HCl (Benadryl) 25 mg PO TID PRN docusate sodium 1 cap PO BID fluoxetine 1 cap PO DAILY levetiracetam 500 mg PO BID 14 days loratadine 1 tab PO DAILY norgestimate-ethinyl estradiol 0.25-0.035 mg (Estarylla) 1 tab PO DAILY sennosides (senna) 17.2 mg PO BEDTIME zolpidem 10 mg PO BEDTIME HPI Comments Details: 49 years old woman with 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 She communicates with touch or gestures. She has been treated for sleep disorder, and for mood disorder including obsessive-compulsive numbness. In January 2021, she was seen at [facility] for a generalized convulsion. She is presenting with anxiety and insomnia. Her anxiety episodes, including a documented panic attack, have led to an ER visit for further psychological assessment. Her current treatment includes fluoxetine and zolpidem. She reports significant difficulties with sleep maintenance despite zolpidem, with nighttime anxiety and restlessness remaining prominent issues. Recent consultations suggested considering trazodone for its sedative and anti-anxiety properties as an adjunct to her current regimen. The history emphasizes particularly how her longstanding medication use influences clinicians' caution in adjusting her treatment. [facility] Medical History Retina disorder, bilateral Scoliosis Mute Hypertension Surgical History History of creation of ostomy H/O Spinal surgery Family History Mother Hx of heart artery stent Sister Cardiovascular disease Brother Cardiovascular disease Father Cardiovascular disease Review of Systems Const Details: - Neurological: Reports insomnia and nighttime restlessness. - Psychiatric: Reports anxiety, including a severe panic attack. - Sleep: Reports difficulty in maintaining sleep. Assessment & Plan Assessment & Plan (1) Chronic static encephalopathy: Code(s): G93.49 - Other encephalopathy Category: Medical Plan Impression: Chronic static encephalopathy with significant behavioral issues Rec: a: Fluoxetine 40mg in am b: Trazodone 50mg PRN at night c: Zolpidem 10mg one at bedtime During the visit, I discussed with the patient and her caregivers the ongoing challenges with anxiety and insomnia, particularly the episode of panic attack that led to ER evaluation. I suggested adding trazodone 50 mg at night to address both insomnia and anxiety, which may offer improved nightly rest and reduced anxiety. The benefits, primarily being trazodone's anxiolytic and sedative effects, were outlined. However, the risks associated with changing a well-established medication regimen needed careful consideration, given the patient's stability with her current medications. Future monitoring of symptom relief and side-effect profiles were recommended. Medications: New trazodone 50 mg PO BEDTIME PRN 90 tabs 0RF sleep Changed From fluoxetine 1 cap PO DAILY To fluoxetine 40 mg PO DAILY 90 caps 1RF Refilled zolpidem 10 mg PO BEDTIME 90 tabs 0RF Coding Level of Care Code Est Pt Level 4 (71615) Diagnoses Chronic static encephalopathy G93.49
--- OUTSIDE RECORDS SUMMARY | 2025-03-24 11:24 | XMS_ITS | Encounter Summary ---
Author Organization [facility] Address [address] [place] [address] Care Team Providers Care Career Guidance Counselor Name Role Phone Xu Mcnally MD Primary Care Provider [phone] Encounter Details Date Type Department Care Team (Latest Contact Info) Description 03/10/2025 Lab Requisition [facility] - Main Lab [address] [facility] [place] [address] Rosa Dial MD [address] [facility] [address] [place] [id number] Encounter for gynecological examination (general) (routine) without abnormal findings Social History Tobacco Use Types Packs/Day Years Used Date Smoking Tobacco: Never Smokeless Tobacco: Never Alcohol Use Standard Drinks/Week Comments Never 0 (1 standard drink = 0.6 oz pur e alcohol) Comments Unknown Sex and Gender Information Value Date Recorded Sex Assigned at Not on file Legal Sex Female 8:07 AM EST Gender Identity Not on file Sexual Orientation Not on file documented as of this encounter Plan of Treatment Upcoming Encounters Date Type Department Care Team (Late st Contact Info) Description 04/26/2025 9:30 AM EDT Office Visit Orthopedic Surgery - [place] [address] [facility] [address] [place] [address] Renato Hebert DPM [address] [facility] [address] [place], [place] [id number] documented as of this encounter Procedures Procedure Name Priority Date/Time Associated Diagnosis Comments PAP SMEAR Routine 03/09/2025 12:00 AM EDT Encounter for gynecological examination (general) (routine) without abnormal findings documented in this encounter Results * Pap smear (03/09/2025 12:00 AM EDT) Interpretation Negative for intraepithelial lesion or malignancy 03/15/2025 2:34 PM EDT [facility] General Categorization Negative 03/15/2025 2:34 PM EDT [facility] Specimen Adequacy Satisfactory for evaluation, endocervical/cabrera sformation zone component present 03/15/2025 2:34 PM EDT [facility] Pap Methodology Liquid Based Pap Test 03/15/2025 2:34 PM EDT [facility] Disclaimer The Pap test is a screening test which carries an inherent false negative rate. These test results should be correlated with the patient's clinical findings and history. This Pap test was processed using an automated screening system. Technical cytopathology services provided by [facility], at [address] [place] [address] (CLIA # [id number]/Reanna Nayak MD, Corporate Treasurer.) 03/15/2025 2:34 PM EDT [facility] Console Pap Interpretation Reported 03/15/2025 2:34 PM T [facility] Brushing/Spatula Cervix uteri structure / Unknown 03/09/2025 03/10/2025 7:53 AM EDT us Rosa Dial MD LAB CYTOLOGY ORDERABLES Final Result [facility] [address] [place] [address], documented in this encounter Visit Diagnoses Diagnosis Encounter for gynecological examination (general) (routine) without abnormal findings documented in this encounter Care Teams Career Guidance Counselor Relationship Specialty Start Date End Date Xu Mcnally MD [address] [facility] [place] [address] PCP - General Internal Medicine 08/30/21 documented as of this encounter
--- OUTSIDE RECORDS SUMMARY | 2025-03-24 11:24 | XMS_ITS | Clinical Summary ---
Author Organization [facility] Address [address] [place] [address] Phone Care Team Providers Care Supervisor Dyer Name Role Phone Xu Mcnally MD Primary Care Provider [phone] Allergies Active Allergy Reactions Criticality Noted Date Comments Other 09/07/2021 [facility] Sulfamethoxazole-Trimethoprim 2021 Medications ammonium lactate (LAC-HYDRIN) 12 % lotion Apply to soles of feet daily. At night wear socks to bed Active ciclopirox (PENLAC) 8 % solution Apply daily to nails clean medication residue off of nail plate every 3 days with rubbing alcohol Active diphenhydrAMINE (BENADRYL) 25 mg tablet Take 25 mg by mouth every 8 hours as needed. Active docusate sodium (COLACE) 100 mg capsule Take 100 mg by mouth 2 times daily. Active fluconazole (DIFLUCAN) 150 mg tablet Take 150 mg by mouth once. Active FLUoxetine (PROzac) 20 mg tablet Take 20 mg by mouth daily. Active levETIRAcetam (KEPPRA) 500 mg tablet Take 500 mg by mouth 2 times daily. Active linaCLOtide (Linzess) 72 mcg capsule Take by mouth. Activ e loratadine (CLARITIN REDITABS) 10 mg dispersible tablet Take 10 mg by mouth daily. Active olopatadine (Pataday Once Daily Relief) 0.7 % drops apply to the eye. Active urea (CARMOL) 40 % cream Apply to affected callus area daily on right foot as needed to soften lesions Active Active Problems Problem Noted Date Diagnosed Date Allergic rhinitis 09/07/2021 Chronic constipation 09/07/2021 KIVALINA (hard of hearing) 09/07/2021 Insomnia 09/07/2021 Intellectual disability 09/07/2021 Legally blind 09/07/2021 OCD (obsessive compulsive disorder) 09/07/2021 Encounters Date Type Department Care Team Description 03/10/2025 Lab Requisition [facility] - Main Lab [address] [facility] [place] [address] Rosa Dial MD Encounter for gynecological examination (general) (routine) without abnormal findings 12/24/2024 10:30 AM EDT Office Visit Orthopedic Surgery - [place] [address] [facility] [address] [place] [address] Renato Hebert DPM Difficulty walking (Primary Dx); Equinus contracture of left ankle; Pain in toes of both feet; Dermatophytosis, nail from Last 3 Months Surgical History Surgery Date Site/Laterality Comments DENTAL SURGERY N/A PROCEDURE: CO UNLISTED PROCEDURE DENTOALVEOLAR STRUCTURES BACK SURGERY PROCEDURE: HISTORICAL BACK SURGERY; COMMENT: 07/08/1991 Medical History Medical History Date Comments Allergic rhinitis 09/07/2021 DX:Allergic rh initis KIVALINA (hard of hearing) 09/07/2021 DX:KIVALINA (franco rd of hearing) History of scoliosis 09/07/2021 DX:History of scoliosis Insomnia 09/07/2021 DX:Insomnia Intellectual disability 09/07/2021 DX:Intel lectual disability Legally blind 09/07/2021 DX:Legally blind OCD (obsessive compulsive disorder) 09/07/2021 DX:OCD (obsessive compulsive disorder) Scoliosis DX:Scoliosis; CO MMENT: hip Social History Tobacco Use Types Packs/Day Years Used Date Smoking Tobacco: Never Smokeless Tobacco: Never Alcohol Use Standard Drinks/Week Comments Never 0 (1 standard drink = 0.6 oz pur e alcohol) Comments Unknown Sex and Gender Information Value Date Recorded Sex Assigned at Not on file Legal Sex Female 8:07 AM EST Gender Identity Not on file Sexual Orientation Not on file Obstetrics History Last Filed Vital Signs Vital Sign Reading Time Taken Comments Blood Pressure - - Pulse - - Temperature - - Respiratory Rate - - Oxygen Saturation - - Inhaled Oxygen Concentration - - Weight 74.8 kg (165 lb) 08/27/2024 2:39 PM EST Height 162.6 cm (5' 4.02 ) 08/27/2024 2:39 PM ES T Body Mass Index 28.31 08/27/2024 2:39 PM EST Plan of Treatment Upcoming Encounters Date Type Department Care Team ([facility] st Contact Info) Description 04/26/2025 9:30 AM EDT Office Visit Orthopedic Surgery - [place] [address] [facility] [address] [place] [id number] Renato Hebert, DPRomulo [address] [facility] [address] [place] [address] Health Maintenance Due Date Last Done Comments Breast Cancer Screening 1974 Hepatitis B Vaccines (1 of 3 - 19+ 3-dose series) 1993 Colorectal Cancer Screening: Colonoscopy 06/17/2022 HIV Screening 06/17/2022 Hepatitis C Screening 06/17/2022 Medicare Annual Wellness Visit 06/17/2022 Social Influencers of Health Screening 06/17/2022 Pneumococcal Vaccine: 50+ Years (1 of 1 - PCV) 2024 Zoster Vaccines (1 of 2) 2024 Depression Screening 07/08/2024 COVID-19 Vaccine ( - season) 2025 03/26/2023, 05/04/2022, 04/02/2021, Additional history exists Influenza Vaccine (#1) 2025 , 05/04/2022, 03/08/2021, Additional history exists Cervical Cancer Screening: Pap Smear 03/09/2028 03/09/2025 DTaP,Tdap,and Td Vaccines (3 - Td or Tdap) 12/29/2033 12/30/2023, 06/22/2013 HIB Vaccines Aged Out No longer eligi ble based on patient's age to complete this topic HPV Vaccines Aged Out No longer eligi ble based on patient's age to complete this topic Hepatitis A Vaccines Aged Out No long er eligible based on patient's age to complete this topic IPV Vaccines Aged Out No longer eligi ble based on patient's age to complete this topic MMR Vaccines Aged Out No longer eligi ble based on patient's age to complete this topic Meningococcal ACWY Vaccine Aged Out N o longer eligible based on patient's age to complete this topic Meningococcal B Vaccine Aged Out No l onger eligible based on patient's age to complete this topic RSV Immunization Patients Under 20 months Aged Out No longer eligible based on patient's age to complete this topic Varicella Vaccines Aged Out No longer eligible based on patient's age to complete this topic Procedures Procedure Name Priority Date/Time Associated Diagnosis Comments PAP SMEAR Routine 03/09/2025 12:00 AM EDT Encounter for gynecological examination (general) (routine) without abnormal findings from Last 3 Months Results * Pap smear (03/09/2025 12:00 AM EDT) Interpretation Negative for intraepithelial lesion or malignancy 03/15/2025 2:34 PM [facility] General Categorization Negative 03/15/2025 2:34 PM [facility] Specimen Adequacy Satisfactory for evaluation, endocervical/cabrera sformation zone component present 03/15/2025 2:34 PM [facility] Pap Methodology Liquid Based Pap Test 03/15/2025 2:34 PM [facility] Disclaimer The Pap test is a screening test which carries an inherent false negative rate. These test results should be correlated with the patient's clinical findings and history. This Pap test was processed using an automated screening system. Technical cytopathology services provided by [facility], at [address] [place] [address] (CLIA # [id number]/Reanna Nayak MD, Museum Service Scheduler.) 03/15/2025 2:34 PM [facility] Console Pap Interpretation Reported 03/15/2025 2:34 PM [facility] Brushing/Spatula Cervix uteri structure / Unknown 03/09/2025 03/10/2025 7:53 AM EDT us Rosa Dial MD LAB CYTOLOGY ORDERABLES Final Result [facility] [[email or web address] [address] [place] [address], [place] [phone] from Last 3 Months Insurance MEDICARE MEDICAID - [place] Care Teams Supervisor Dyer Relationship Specialty Start Date End Date Xu Mcnally MD [facility] [address] [place] [address] PCP - General Internal Medicine 08/30/21
== END 2025-03-24 10:17 | disposition home or self-care (01) ==
LOC: HO.HSM 09:37
PROVIDERS: PCP Family Medicine; Referring Provider Family Medicine; Visit Provider Psychiatry & Neurology Neurology
DX: G93.49 Other encephalopathy (principal)
CPT/HCPCS: 99214

== ENCOUNTER → 2025-03-24 09:36 | Outpatient (BNVA) | payer MEDICARE, MEDICAID, SELFPAY | PROVIDERS: PCP Family Medicine; Referring Provider Family Medicine; Visit Provider Psychiatry & Neurology Neurology | DX: G93.49 Other encephalopathy (principal) | CPT/HCPCS: 99212 ==